=== PATIENT | female | born 1995 | race Caucasian/White ===

== ENCOUNTER 2016-12-05 16:32 | Observation (INO) | payer BC | END 2016-12-05 18:45 | disposition home or self-care (01) | LOC: FLD 16:32 | PROVIDERS: ADMIT Obstetrics & Gynecology; ATTEND Obstetrics & Gynecology | DX: O36.8190 Decreased fetal movements, unspecified trimester, not applicable or unspecified (principal) | CPT/HCPCS: G0378 ×2 ==

== ENCOUNTER 2016-12-17 12:17 | Observation (INO) | payer BC ==
--- NOTE | 2016-12-17 12:57 | OBPROG ---
OBG Labor Progress Note Assessment/Plan: Assessment:cat1 fhr amnisure collected ffn collected pain 2-3 per patient vs wnl iv fluids 1l bolus gbs collected minimal blood in vault of vagina brownish discharge exam 2-3//-1 cephalic able to feel bow ferning negative contractions noted on monitor 3-5 minutes apart Plan:consult dr. marta salas on poc 12/17/16 12:52 Subjective: Feeling irregular menstrual crampig since intercourse last night at 0200. Bleeding of and on since then spotting. States feeling + movement. Unsure about leaking fluid. - SVE Dilation (cm): 2 ICD10 Worksheet Patient Problems: Problems Problem Status Onset Decreased movement Acute Decreased movement during in third trimester, antepartum Acute
[2016-12-17] MEDS ORDERED: TERBUTALINE SULFATE 1 MG/ML VIAL IV PRN (14:38)
[2016-12-17] MEDS ORDERED: OLIVE OIL 118 ML BTL MISC PRN (14:38)
[2016-12-17] MEDS ORDERED: IBUPROFEN 600 MG TAB PO PRN (14:38)
[2016-12-17] MEDS ORDERED: AMPICILLIN SODIUM 2 GM in NS 100 ML IV ONE (14:38)
[2016-12-17] MEDS ORDERED: LR 1,000 ML IV PRN (14:38)
[2016-12-17] MEDS ORDERED: EPSOM SALT 454 GM TP PRN (14:38)
[2016-12-17] MEDS ORDERED: OXYTOCIN/RINGERS LACTATE 1,000 ML IV PRN (14:38)
[2016-12-17 14:53] LABS: % IMMATURE GRANULYOCYTES 0.5 % (0.0-1.1); ABSOLUTE IMMATURE GRANULOCYTES 0.06 10^3/uL (0.00-0.10); ADD DIFF? NO; ADD MORPH? NO; ADD SCAN? NO; ATYPICAL LYMPHOCYTE FLAG 10 (0-99); FRAGMENT RBC FLAG 0 (0-99); HEMATOCRIT 35.2 % (38.0-47.0); HEMOGLOBIN 11.7 g/dL (12.6-16.3); LEFT SHIFT FLG 0 (0-99); LIPEMIA HEMOLYSIS FLAG 80 (0-99); MEAN CELL HEMOGLOBIN 29.3 pg (27.9-34.1); MEAN CELL HEMOGLOBIN CONCENTR. 33.2 g/dL (32.4-36.7); PLATELET CLUMPS FLAG 0 (0-99); PLATELET COUNT 249 10^3/uL (150-400)
[2016-12-17] MEDS ORDERED: BETAMETHASONE IM SYRINGE IM SCH (15:00)
--- NOTE | 2016-12-17 15:32 | OBPROG ---
OBG Labor Progress Note Assessment/Plan: Assessment:cat1 fhr amnisure collected/ positive ffn collected/ dc'd patient had intercourse less than 24h ago pain 2-3 per patient vs wnl gbs collected exam 2-/-1 cephalic able to feel bow ferning negative contractions noted on monitor 3-5 minutes apart us ced 8.9 cm no previa noted on us consulted dr. marta salas on POC betamethasone, ampicillin and gentamycin expectant management of labor continuous monitoring Plan:admit treat as if rom occured, wait for change in cervix, betamethasone 12/17/16 12:52 12/17/16 15:28 Objective: 12/17/16 14:35 Patient ABO/Rh A POSITIVE 12/17/16 14:35 Oxytocin Orders Assessment - Pre-Induction/Augmentation Assessment Gestational Age: 35 week(s) and 5 day(s) ICD10 Worksheet Patient Problems: Problems Problem Status Onset Decreased movement Acute Decreased movement during in third trimester, antepartum Acute
--- NOTE | 2016-12-17 16:09 | GHP ---
[f rep st] HISTORY AND PHYSICAL DATE OF ADMISSION: 12/17/2016 HISTORY OF PRESENT ILLNESS: The patient is a 20-year-old, 1, para 0, with an EDC of 01/16/2017, gives her a gestational age of 35 and 5/7 weeks, who comes in with complaint of bleeding after intercourse at 2:00 a.m. on 2016. Unsure of leaking, bleeding in several episodes until got into the hospital at 11:30/noon today on 12/17/2016. States significant other is not involved, and she has a friend whose name is Yeyo. She has been receiving care through [facility] since early on in . MEDICAL HISTORY: Benign. SURGICAL HISTORY: Tonsillectomy. SOCIAL HISTORY: Father of the child is not involved. Denies smoking. Denies drug use. HISTORY: Positive UTI, E coli with treatment during . GYNECOLOGICAL HISTORY: Previous use of Depo-Provera and condoms. FAMILY HISTORY: Benign. LABS: The patient is A positive, antibody negative. RPR is nonreactive. Rubella is immune. Hepatitis is negative. HIV is negative. Trio screen is negative. Pap was within normal limits. Gonorrhea and chlamydia were negative. Quad screen and nuchal translucency, all of genetic screening was declined. One-hour GTT was within normal limits. GBS had not been completed, so was completed today, and is in progress. PHYSICAL EXAMINATION: GENERAL: The patient is awake, alert, oriented x3. LUNGS: Clear bilaterally. ABDOMEN: Bowel sounds are positive in all 4 quadrants. EXTREMITIES: DTRs are 1+ bilaterally with no clonus. Homans sign is negative bilaterally. : On admission, the patient was suki routinely every 3-5 minutes. With speculum exam, there was brownish discharge noted with no andrzej bleeding. AmniSure was completed. FFN was completed, but then discontinued as the patient had intercourse in the last 24 hours. Digital exam of the cervix after testing was 2-3 cm 75% effaced, -1 station, cephalic. Could palpate bag of water. Ultrasound complete was ordered. CELI was 8.9 cm, and no previa was noted.. Consulted Dr. Heredia on plan of care. Indeterminate whether or not bag of water is actually ruptured, so we will treat with ampicillin and Zithromax, betamethasone 12 mg IM x2 doses over 24 hours. Continuous monitoring with reassessment of the cervix in several hours. Unknown GBS, so ampicillin also will be running for that purpose. /[id number]/MODL MTDD
[2016-12-17] MEDS: AZITHROMYCIN IV 500 MG in D5W 250 ML IV SCH (16:15)
[2016-12-17] MEDS: AMPICILLIN SODIUM 1 GM in NS 100 ML IV SCH (19:30)
[2016-12-17] MEDS ORDERED: ZOLPIDEM TARTRATE 5 MG TAB PO PRN ×2 (19:51→22:00)
--- NOTE | 2016-12-17 19:53 | OBPROG ---
OBG Labor Progress Note Assessment/Plan: Assessment:cat1 fhr again explained POC to patient and family discouraged rechecking cervix at this time discussed ambiguity of tests performed today and need to repeat ok with POC deferred exam Plan:reassess rom tomorrow and labor. Ambien for sleep 12/17/16 12:52 12/17/16 15:28 12/17/16 19:49 12/17/16 19:51 Objective: 12/17/16 14:35 Patient ABO/Rh A POSITIVE 12/17/16 14:35 Oxytocin Orders Assessment - Pre-Induction/Augmentation Assessment Gestational Age: 35 week(s) and 5 day(s) ICD10 Worksheet Patient Problems: Problems Problem Status Onset Decreased movement Acute Decreased movement during in third trimester, antepartum Acute
[2016-12-18] MEDS: AMPICILLIN SODIUM 1 GM in NS 100 ML IV SCH ×3 (00:15→08:54)
[2016-12-18] MEDS ORDERED: AZITHROMYCIN IV 500 MG in D5W 250 ML IV SCH (07:30)
[2016-12-18] MEDS: AZITHROMYCIN IV 500 MG in D5W 250 ML IV SCH (10:36)
== END 2016-12-18 11:30 | disposition home or self-care (01) ==
LOC: OBSVTOIN 12:17 → INTOOBSV 12:17 → FLD 12:17
PROVIDERS: ADMIT Advanced Practice Midwife; ATTEND Advanced Practice Midwife
DX: O26.853 Spotting complicating pregnancy, third trimester (principal); O26.873 Cervical shortening, third trimester; Z3A.35 35 weeks gestation of pregnancy
CPT/HCPCS: J0290; J0456; J0702

== ENCOUNTER 2016-12-18 15:35 | Observation (INO) | payer BC ==
[2016-12-18] MEDS ORDERED: BETAMETHASONE IM SYRINGE IM ONE (16:00)
== END 2016-12-18 16:15 | disposition home or self-care (01) ==
LOC: FLD 15:35
PROVIDERS: ADMIT Obstetrics & Gynecology; ATTEND Obstetrics & Gynecology
CPT/HCPCS: J0702

== ENCOUNTER 2017-01-07 05:08 | Inpatient (IN) | payer BC ==
[2017-01-07] MEDS ORDERED: AMPICILLIN SODIUM 2 GM in NS 100 ML IV ONE (05:40)
[2017-01-07] MEDS ORDERED: TERBUTALINE SULFATE 1 MG/ML VIAL IV PRN (05:40)
[2017-01-07] MEDS ORDERED: LR 1,000 ML IV PRN (05:40)
[2017-01-07] MEDS ORDERED: EPSOM SALT 454 GM TP PRN (05:40)
[2017-01-07] MEDS ORDERED: OXYTOCIN/RINGERS LACTATE 1,000 ML IV PRN (05:40)
[2017-01-07] MEDS ORDERED: OLIVE OIL 118 ML BTL MISC PRN (05:40)
[2017-01-07] MEDS ORDERED: OLIVE OIL 118 ML BTL ONE (05:48)
[2017-01-07] MEDS ORDERED: LIDOCAINE 1% 300 MG/30 ML SDV ONE (05:48)
[2017-01-07] MEDS ORDERED: AMMONIA AROMATIC 1 EACH AMP IH ONE (05:48)
[2017-01-07] MEDS ORDERED: OXYTOCIN 10 UNIT/ML VIAL ONE (05:49)
[2017-01-07] MEDS ORDERED: TERBUTALINE SULFATE 1 MG/ML VIAL ONE (05:49)
[2017-01-07] MEDS ORDERED: MISOPROSTOL 200 MCG TAB ONE (05:49)
[2017-01-07 05:51] LABS: % IMMATURE GRANULYOCYTES 0.5 % (0.0-1.1); ABSOLUTE IMMATURE GRANULOCYTES 0.08 10^3/uL (0.00-0.10); ADD DIFF? NO; ADD MORPH? NO; ADD SCAN? NO; ATYPICAL LYMPHOCYTE FLAG 0 (0-99); FRAGMENT RBC FLAG 0 (0-99); HEMATOCRIT 34.1 % (38.0-47.0); HEMOGLOBIN 11.1 g/dL (12.6-16.3); LEFT SHIFT FLG 0 (0-99); LIPEMIA HEMOLYSIS FLAG 80 (0-99); MEAN CELL HEMOGLOBIN 28.5 pg (27.9-34.1); MEAN CELL HEMOGLOBIN CONCENTR. 32.6 g/dL (32.4-36.7); MEAN CELL VOLUME 87.4 fL (81.5-99.8); MEAN PLATELET VOLUME 11.5 fL (8.7-11.7); PLATELET CLUMPS FLAG 0 (0-99); PLATELET COUNT 268 10^3/uL (150-400); RED CELL DISTRIBUTION WIDTH 14.9 % (11.5-15.2)
[2017-01-07] MEDS ORDERED: fentaNYL 2MCG/ML/BUP 0.1% RTU 100 ML BAG EP ONE (05:54)
[2017-01-07] MEDS ORDERED: BUPIVACAINE 0.25% 30 ML SDV ONE (05:54)
[2017-01-07] MEDS ORDERED: PHENYLEPHRINE HCL 100 MCG/ML SYR ONE (05:54)
[2017-01-07] MEDS ORDERED: fentaNYL 100 MCG/2 ML INJ ONE (05:55)
[2017-01-07] MEDS ORDERED: fentaNYL 2MCG/ML/BUP 0.1% RTU 100 ML EP SCH (06:30)
[2017-01-07] MEDS ORDERED: LR 500 ML IV SCH (06:30)
--- NOTE | 2017-01-07 06:34 | POSTANESTH ---
Post Anesthetic Evaluation Cardiovascular Status: Normal, Stable Respiratory Status: Normal, Stable Level of Consciousness/Mental Status: Can Participate in Eval Pain Control: Adequate, Prn Tx Ordered Nausea/Vomiting Control: Adequate, Prn Tx Ordered Complications Possibly Related to Anesthesia: None Noted (Epidural placement well tolerated. Pt confortable and resting.)
--- NOTE | 2017-01-07 06:34 | PREANESOB ---
Obstetric Pre-Anesthesia Info - General Info Proposed Procedure: PCEA : 1 Para: 0 - Info Status: Full Term, Hoffmann Monitors: External FHR Pattern: Reassuring - Labor Status Indications for Labor Analgesia: Pain Control Labor Epidural: Yes Anesthesia Allergies/Adverse Reactions: Allergy/AdvReac Type Severity Reaction Status Date / Time No Known Allergies Allergy Unverified 12/05/16 18:10 Home Medications: Medication Instructions Recorded Vit27&Calcium/Iron/FA 1 tab 12/17/16 [] Tylenol W/Codeine 12/17/16 Visit Medications: Generic Name Dose Route Start Last Admin Trade Name Freq PRN Reason Stop Dose Admin Ampicillin Sodium 1 gm/ Sodium 100 mls @ 200 mls/hr 01/07/17 10:00 Chloride IV 02/06/17 09:59 Q4H ODELL Protocol Lactated Ringer's 1,000 mls @ 0 mls/hr 01/07/17 05:40 Lr IV 07/06/17 05:39 PRN PRN SEE PROTOCOL CONDITIONS Protocol Per Protocol Oxytocin/Lactated Ringer's 1,000 mls @ 150 mls/hr 01/07/17 05:40 Pitocin 20 Units/Lr (Premix) IV PRN PRN Post- bleeding Ibuprofen 600 mg 01/07/17 05:40 Motrin PO 07/06/17 05:39 Q6HRS PRN post , inflammation Magnesium Sulfate 454 gm 01/07/17 05:40 Epsom Salt TP 07/06/17 05:39 Q1H PRN perineal discomfort [place] Oil 118 ml 01/07/17 05:40 Sweet Oil MISC 07/06/17 05:39 ONCE PRN perineal massage Terbutaline Sulfate 0.25 mg 01/07/17 05:40 Brethine IV 07/06/17 05:39 ONCE PRN Tachysystole Discontinued Medications Generic Name Dose Route Start Last Admin Trade Name Freq PRN Reason Stop Dose Admin Ammonia (Aromatic Spirit) Confirm 01/07/17 05:48 Ammonia Aromatic Administered 01/07/17 05:49 Dose 1 each IH .STK-MED ONE Bupivacaine HCl Confirm 01/07/17 05:54 Sensorcaine 0.25% Sdv Administered 01/07/17 05:55 Dose 30 ml .ROUTE .STK-MED ONE Ephedrine Sulfate Confirm 01/07/17 05:48 Ephedrine Sulfate Administered 01/07/17 05:49 Dose 50 mg .ROUTE .STK-MED ONE Fentanyl Confirm 01/07/17 05:55 Sublimaze Administered 01/07/17 05:56 Dose 100 mcg .ROUTE .STK-MED ONE Fentanyl/Bupivacaine HCl Confirm 01/07/17 05:54 Fentanyl/Bupivacaine/Ns 2 Mcg/Ml 0.1% (Premix Administered 01/07/17 05:55 Dose 100 ml EP .STK-MED ONE Ampicillin Sodium 2 gm/ Sodium 110 mls @ 220 mls/hr 01/07/17 05:40 Chloride IV 01/07/17 06:09 ONCE ONE Protocol Lidocaine HCl Confirm 01/07/17 05:48 Lidocaine Hcl 1% Administered 01/07/17 05:49 Dose 300 mg .ROUTE .STK-MED ONE Misoprostol Confirm 01/07/17 05:49 Cytotec Administered 01/07/17 05:50 Dose 800 mcg .ROUTE .STK-MED ONE [place] Oil Confirm 01/07/17 05:48 Sweet Oil Administered 01/07/17 05:49 Dose 118 ml .ROUTE .STK-MED ONE Oxytocin Confirm 01/07/17 05:49 Pitocin Administered 01/07/17 05:50 Dose 60 unit .ROUTE .STK-MED ONE Phenylephrine HCl Confirm 01/07/17 05:54 Neosynephrine Administered 01/07/17 05:55 Dose 1,000 mcg .ROUTE .STK-MED ONE Terbutaline Sulfate Confirm 01/07/17 05:49 Brethine Administered 01/07/17 05:50 Dose 1 mg .ROUTE .STK-MED ONE - Focused Exam Height/Weight (Nursing): Height 165.1 cm Weight 65.771 kg Labs: 01/07/17 05:40 Patient ABO/Rh A POSITIVE 01/07/17 05:40
--- NOTE | 2017-01-07 06:37 | OBPROG ---
Labor Progress Note Assessment/Plan: Assessment: Plan: Subjective/Intrapartum Course: 01/07/17 06:31 SROM and increase in rectal pressure when sitting up for epidural. patient comfortable with epidural now. will let patient rest and begin pushing when feels urge or after she has rested. Objective: 01/07/17 05:40 - SVE Dilation (cm): 9, 10 Effacement (%): 100 Station: +1 Membranes: SROM Amniotic Fluid Color: Clear - FHR Assessment Hoffmann FHR (bpm): 150 FHR Pattern Variability: Moderate FHR Category: 1 - AP Antepartum Course: 01/07/17 06:33 unplanned pregnany. father of baby is not involved. transfer from [place] to [facility] at 24 weeks. poor support system. working with counselor. growth ultrasound at 34 weeks for size less than dates. declined genetic testing. Oxytocin Orders Assessment - Pre-Induction/Augmentation Assessment Gestational Age: 38 week(s) and 5 day(s) ICD10 Worksheet Patient Problems: Problems Problem Status Onset Decreased movement Acute Decreased movement during in third trimester, antepartum Acute Leakage of amniotic fluid Acute uterine contractions in third trimester, antepartum Acute
[2017-01-07] MEDS ORDERED: AMPICILLIN SODIUM 1 GM in NS 100 ML IV SCH (10:00)
--- NOTE | 2017-01-07 11:20 | OBDEL ---
Info Type: Vaginal Presentation at Delivery: Vertex L&D Analgesia/Anesthesia Type: Epidural GBS+: Yes Antibiotic Used for + GBS: Ampicillin Intrapartum Medications: Generic Name Dose Route Start Last Admin Trade Name Mychal PRN Reason Stop Dose Admin Ampicillin Sodium 1 gm/ Sodium 100 mls @ 200 mls/hr 01/07/17 10:00 01/07/17 09:50 Chloride IV 02/06/17 09:59 100 mls Q4H ODELL Administration Protocol Discontinued Medications Generic Name Dose Route Start Last Admin Trade Name Mychal PRN Reason Stop Dose Admin Ampicillin Sodium 2 gm/ Sodium 110 mls @ 220 mls/hr 01/07/17 05:40 01/07/17 05:45 Chloride IV 01/07/17 06:09 110 mls ONCE ONE Administration Protocol - Hospital Course Intrapartum: 01/07/17 06:31 SROM and increase in rectal pressure when sitting up for epidural. patient comfortable with epidural now. will let patient rest and begin pushing when feels urge or after she has rested. Indications for Delivery: Spontaneous Labor, SROM Vaginal Delivery - Delivery Provider Delivery Physician/CNM: Jerri Culeln Proctoring Provider: Sowmya Heredia - Labor and Delivery Onset of Contractions Date: 01/06/17 Onset of Contractions Time: 23:00 Onset of Contractions Type: Spontaneous Rupture of Membranes Date: 01/07/17 Rupture of Membranes Time: 06:10 Rupture of Membranes Type: Spontaneous Amniotic Fluid Color: Clear Dilation Complete Date: 01/07/17 Dilation Complete Time: 08:42 Placenta Delivery Date: 01/07/17 Placenta Delivery Time: 11:05 Total Hours of Labor: 12 Laceration: Other (Specify) (bilateral labial lacs) Repair: 3-0, Vicryl (on SH) Vaginal Sponge Count Correct: Yes Vaginal Needle Count Correct: Yes Vaginal Sweep Performed: Yes EBL: 200 Delivery Events: Nuchal Cord Data Hoffmann Delivery Date: 01/07/17 Delivery Time: 10:55 THAIS: 01/16/17 Gestational Age: 38 week(s) and 5 day(s) Sex of : Male Score (1 Min): 8 Score (5 Min): 9 ICD10 Worksheet Patient Problems: Problems Problem Status Onset (spontaneous vaginal delivery) Acute (spontaneous vaginal delivery) Acute Decreased movement Acute Decreased movement during in third trimester, antepartum Acute Leakage of amniotic fluid Acute uterine contractions in third trimester, antepartum Acute - ICD10 Problem Qualifiers (1) (spontaneous vaginal delivery) (2) (spontaneous vaginal delivery)
[2017-01-07] MEDS ORDERED: HYDROCORTISONE 0.5% CREAM TP PRN (11:22)
[2017-01-07] MEDS ORDERED: ACETAMINOPHEN 325 MG TAB PO PRN (11:22)
[2017-01-07] MEDS ORDERED: HYDROCODONE/APAP 5/325 TAB PO PRN (11:22)
[2017-01-07] MEDS ORDERED: SIMETHICONE 80 MG TAB CHEW PO PRN (11:22)
--- NOTE | 2017-01-07 11:32 | PDGENHP ---
History and Physical - Chief Complaint pt presents to L&D with complaints of contractions since 230 - History of Present Illness this is a 21yo with IUP@ 38-5wks that complains of contractions since @ 2300. She denies any LOF, VB. Reports +FM She denies any headaches, visual changes, epigastric pain. She reports pain 6/ 10 with contractions. She has not tried anything for pain relief. She desires epidural when pain increases. History Information - Allergies/Home Medication List Allergies/Adverse Reactions: No Known Allergies Allergy (Unverified 12/05/16 18:10) Home Medications: Vit27&Calcium/Iron/FA [] 1 tab 12/17/16 [Last Taken 12/16/16] Tylenol W/Codeine 12/17/16 [Last Taken Unknown] I have personally reviewed and updated: family history, medical history, social history, surgical history - Past Medical History no pertinent PMH - Surgical History Additional surgical history: tonsillectomy - Family History Positive for: non-pertinent - Social History Smoking Status: Never smoked Alcohol Use: None Drug Use: Marijuana (prior to +UPT) Additional social history: FOB not involved, good support system with family Review of Systems Review of Systems: ROS: 10pt was reviewed & negative except for what was stated in HPI & below Constitutional: Reports: no symptoms EENMT: Reports: no symptoms Cardiac: Reports: no symptoms Respiratory: Reports: no symptoms Gastrointestinal: Reports: no symptoms Genitourinary: Reports: no symptoms Neurological: Reports: no symptoms Physical Exam Physical Exam: Constitutional: no apparent distress, appears nourished Eyes: PERRL Ears, Nose, Mouth, Throat: moist mucous membranes Cardiovascular: regular rate and rhythym, no murmur, rub, or gallop Respiratory: no respiratory distress Gastrointestinal: soft, non-tender abdomen Skin: warm, normal color, no rashes or abrasions Musculoskeletal: full muscle strength Neurologic: AAOx3 Psychiatric: interacting appropriately Lab Data & Imaging Review 01/07/17 05:40 WBC 17.58 10^3/uL (3.80-9.50) H 01/07/17 05:40 RBC 3.90 10^6/uL (4.18-5.33) L 01/07/17 05:40 Hgb 11.1 g/dL (12.6-16.3) L 01/07/17 05:40 Hct 34.1 % (38.0-47.0) L 01/07/17 05:40 MCV 87.4 fL (81.5-99.8) 01/07/17 05:40 MCH 28.5 pg (27.9-34.1) 01/07/17 05:40 MCHC 32.6 g/dL (32.4-36.7) 01/07/17 05:40 RDW 14.9 % (11.5-15.2) 01/07/17 05:40 Plt Count 268 10^3/uL (150-400) 01/07/17 05:40 MPV 11.5 fL (8.7-11.7) 01/07/17 05:40 Neut % (Auto) 81.0 % (39.3-74.2) H 01/07/17 05:40 Lymph % (Auto) 13.3 % (15.0-45.0) L 01/07/17 05:40 Eddy % (Auto) 4.8 % (4.5-13.0) 01/07/17 05:40 Eos % (Auto) 0.2 % (0.6-7.6) L 01/07/17 05:40 Baso % (Auto) 0.2 % (0.3-1.7) L 01/07/17 05:40 Nucleat RBC Rel Count 0.0 % (0.0-0.2) 01/07/17 05:40 Absolute Neuts (auto) 14.25 10^3/uL (1.70-6.50) H 01/07/17 05:40 Absolute Lymphs (auto) 2.34 10^3/uL (1.00-3.00) 01/07/17 05:40 Absolute Monos (auto) 0.84 10^3/uL (0.30-0.80) H 01/07/17 05:40 Absolute Eos (auto) 0.03 10^3/uL (0.03-0.40) 01/07/17 05:40 Absolute Basos (auto) 0.04 10^3/uL (0.02-0.10) 01/07/17 05:40 Absolute Nucleated RBC 0.00 10^3/uL (0-0.01) 01/07/17 05:40 Immature Gran % 0.5 % (0.0-1.1) 01/07/17 05:40 Immature Gran # 0.08 10^3/uL (0.00-0.10) 01/07/17 05:40 Patient ABO/Rh A POSITIVE 01/07/17 05:40 Antibody Screen NEGATIVE 01/07/17 05:40 Assessment & Plan Assessment: 21yo with IUP@ 38-5wks by L/9 active labor GBS+ Plan: Admit to L&D OFELIA for pain management reassess PRN Anticipate
[2017-01-07] MEDS: IBUPROFEN 600 MG TAB PO PRN ×2 (14:45→20:47)
[2017-01-07] MEDS: DOCUSATE SODIUM 100 MG CAP PO PRN (20:48)
[2017-01-08] MEDS: IBUPROFEN 600 MG TAB PO PRN ×4 (03:59→22:45)
[2017-01-08] MEDS: DOCUSATE SODIUM 100 MG CAP PO PRN ×2 (10:49→22:45)
--- NOTE | 2017-01-08 13:54 | OBPP ---
Progress Note Assessment/Plan: Assessment: ppd# 1 s/p breast feeding anemia Plan: routine post care iron clinical social work therapist consult 01/08/17 13:52 Subjective/ Course: 01/08/17 13:53 patient is doing well. pain is well controlled. normal lochia. denies headache and changes in vision. breast feeding is going well. met with community mental health social worker to discuss resources if needed. ambulating. voiding without difficulty. Objective: 01/07/17 05:40 Patient ABO/Rh A POSITIVE 01/07/17 05:40 Temp Pulse Resp BP Pulse Ox 36.3 C 48 L 18 90/47 L 96 01/08/17 09:35 01/08/17 09:35 01/08/17 09:35 01/08/17 09:35 01/08/17 09:35 Uterine Position/Fundal Height: Umbilicus -2 Uterine Tone: Firm Physical Exam - Physical Exam Neck: non-tender, full range of motion Respiratory: chest non-tender, lungs clear, normal breath sounds Cardiac/Chest: normal peripheral pulses, regular rate, rhythm Abdomen: normal bowel sounds, non-tender Extremities: normal range of motion, non-tender, normal inspection, normal capillary refill Skin: normal color, warm/dry Neuro/Psych: no motor/sensory deficits, alert, normal mood/affect, oriented x 3
[2017-01-08] MEDS: IRON POLYSAC/IRON HEME 28 MG TAB PO SCH (16:43)
--- NOTE | 2017-01-08 17:09 | ASMTCMCOM ---
CM Note CM Note Notes: Spoke w/MOB at request of her RN, Mitzi. Lauren is a single mother. She lives here in [place] and is employed and out on maternity leave. She received care. The FOB is in [place] and will not be part of their life. Lauren's 2 sisters are here from [place] and have signed a lease to stay in the area for a while to help Lauren. Per Lauren, she has a large apt in [facility]. She seemed appropriate when CM met w/her and RN had no concerns w/her interaction w/the . She is already enrolled in WIC. AGUSTIN provided a list of resources for single parents. She declined other resources and felt she did not have any other needs at this time. She feels she will have good support from her family after d/c. Date Signed: 01/08/2017 04:40 PM Electronically Signed By:Jayne Dela Cruz
[2017-01-09] MEDS: IBUPROFEN 600 MG TAB PO PRN (05:52)
[2017-01-09 08:38] VITALS: O2SAT 97
--- NOTE | 2017-01-09 08:51 | OBGCSDC ---
General Delivery Information - General Info : 1 Para: 1 Abortions: 0 Type: Vaginal L&D Analgesia/Anesthesia Type: Epidural, Local Admission Date: 01/07/17 Labs: Patient ABO/Rh A POSITIVE 01/07/17 05:40 Hct 34.1 % (38.0-47.0) L 01/07/17 05:40 - Hospital Course Antepartum: 01/07/17 06:33 unplanned pregnany. father of baby is not involved. transfer from [place] to [facility] at 24 weeks. poor support system. working with counselor. growth ultrasound at 34 weeks for size less than dates. declined genetic testing. Intrapartum: 01/07/17 06:31 SROM and increase in rectal pressure when sitting up for epidural. patient comfortable with epidural now. will let patient rest and begin pushing when feels urge or after she has rested. : 01/08/17 13:53 patient is doing well. pain is well controlled. normal lochia. denies headache and changes in vision. breast feeding is going well. met with social media manager to discuss resources if needed. ambulating. voiding without difficulty. 01/09/17 08:50 doing well. pain well managed, well. Tenderness noted with . fu 4 weeks and 6 weeks Vaginal - Delivery Provider Delivery Physician/CNM: Jerri Cullen - Diagnosis Labor: Spontaneous Rupture of Membranes Type: Spontaneous Amniotic Fluid Color: Clear Laceration: Other (Specify) (bilateral labial lacs) Repair: 3-0, Vicryl (on SH) Delivery Events: Nuchal Cord - Delivery EBL: 200 Data Hoffmann Delivery Date: 01/07/17 Delivery Time: 10:55 THAIS: 01/16/17 Gestational Age: 39 week(s) and 0 day(s) Sex of Infant: Male Weight (gm): 2986 kg Score (1 Min): 8 Score (5 Min): 9
--- NOTE | 2017-01-09 08:54 | OBPP ---
Progress Note Assessment/Plan: Assessment:nipples tender pain well managed vs stable afebrile scant rubra lochia perineum approximated well pain well managed Plan:discharge to home with instructions fu 4 weeks and 6 weeks, ss infection, pericare, continue PNV bleeding patters, pain management, pelvic rest, slow return to routine exercise, contraception verbalized understanding of all of the above 01/09/17 08:52 Subjective/ Course: 01/08/17 13:53 patient is doing well. pain is well controlled. normal lochia. denies headache and changes in vision. breast feeding is going well. met with social welfare clerk to discuss resources if needed. ambulating. voiding without difficulty. 01/09/17 08:50 doing well. pain well managed, well. Tenderness noted with . fu 4 weeks and 6 weeks Objective: 01/07/17 05:40 Patient ABO/Rh A POSITIVE 01/07/17 05:40 Temp Pulse Resp BP Pulse Ox 36.9 C 57 L 17 88/55 L 97 01/09/17 08:00 01/09/17 08:00 01/09/17 08:00 01/09/17 08:00 01/09/17 08:00 Uterine Position/Fundal Height: At Umbilicus Uterine Tone: Firm Physical Exam - Physical Exam General Appearance: WD/WN, alert, no apparent distress Abdomen: other (ff@u scant rubra lochia) Extremities: Nick's sign (negative bilaterally) DTR- Lower Extremities: Knee (R): 1+, Knee (L): 1+ (no clonus) Skin: normal color, warm/dry Neuro/Psych: no motor/sensory deficits, alert, normal mood/affect, oriented x 3
[2017-01-09] MEDS: DOCUSATE SODIUM 100 MG CAP PO PRN (09:33)
[2017-01-09] MEDS: IRON POLYSAC/IRON HEME 28 MG TAB PO SCH (09:33)
[2017-01-09 11:30] VITALS: BP 104/75; PULSE 72; RESP 16
[2017-01-09 12:24] VITALS: TEMP 98.4
== END 2017-01-09 12:15 | disposition home or self-care (01) | DRG 775 ==
LOC: FLD 05:08 → OBSVTOIN 05:40 → FOB 13:54
PROVIDERS: ADMIT Obstetrics & Gynecology; ATTEND Obstetrics & Gynecology
PROC: 0HQ9XZZ Repair Perineum Skin, External Approach (ICD-10-PCS; principal; 2017-01-07)
PROC: 10E0XZZ Delivery of Products of Conception, External Approach (ICD-10-PCS; principal; 2017-01-07)
DX: O70.0 First degree perineal laceration during delivery (principal); O99.820 Streptococcus B carrier state complicating pregnancy; O90.81 Anemia of the puerperium; Z3A.38 38 weeks gestation of pregnancy; Z37.0 Single live birth
CPT/HCPCS: J0290; J2370; J2590; J3010; J3105